=== PATIENT | female | born 1955 | race Caucasian/White ===

== ENCOUNTER 2019-08-06 12:29 | Observation (INO) | payer MEDICARE, BC ==
[~2019-08-06] VITALS: Ht 167.6 cm; Wt 68.3 kg
--- NOTE | 2019-08-06 13:39 | Diagnostic Imaging Report ---
Exam: Head CT without contrast History: Disoriented, memory loss Comparison studies: None Technique: Axial images were obtained from the skull base to the vertex. Coronal and sagittal images reconstructed from the axial data. Dose modulation, iterative reconstruction, and/or weight based adjustment of the mA/kV was utilized to reduce the radiation dose to as low as reasonably achievable. Radiation dose: Total DLP: 921 mGy*cm. Estimated effective dose: DLP x 0.015 Intravenous contrast: None Findings: Scalp: No abnormalities. Bones: No fractures, blastic or lytic lesions. Brain sulci: Appropriate for age. Ventricles: Normal in size and configuration. No hydrocephalus. Extra-axial spaces: No masses, no fluid collection. Parenchyma: No abnormal densities. No masses, hemorrhage, acute or chronic vascular insults. Brain volume within normal limits for patient's age. No significant disproportionate lobar, hippocampal, brainstem or cerebellar atrophy. Sellar/suprasellar region: No abnormalities. Craniocervical junction: Patent foramen magnum. No Chiari one malformation. Incidental findings: Included paranasal sinuses: Clear. Middle ear and mastoids: Clear. IMPRESSION: No acute abnormalities. Signed by: Dr. Wilmer New M.D. on 08/06/2019 1:35 PM
[2019-08-06 14:00] LABS: BASOPHILS % 0.4 % (0.0-1.0); EOSINOPHILS # (AUTO) 0.1 (0.0-0.4); EOSINOPHILS % 0.9 % (0.0-6.0); HEMATOCRIT 41.4 % (34.2-44.1); LYMPHOCYTES # (AUTO) 1.5 (1.0-3.2); LYMPHOCYTES % 14.9 % (18.0-39.1); MEAN CORPUSCULAR HEMOGLOBIN 29.7 pg (28-32); MEAN CORPUSCULAR HGB CONC 33.8 g/dL (31-35); MEAN CORPUSCULAR VOLUME 87.7 fL (81-99); MONOCYTES # (AUTO) 0.4 (0.2-0.8); MONOCYTES % 4.3 % (4.4-11.3); PLATELET COUNT 291 x10e3/uL (140-360); RED BLOOD COUNT 4.72 x10e6/uL (3.6-5.1); RED CELL DISTRIBUTION WIDTH 13.2 % (11.7-14.4)
[2019-08-06 14:03] LABS: BILIRUBIN,URINE NEGATIVE (NEGATIVE); CLARITY,URINE CLEAR (CLEAR); COLOR,URINE YELLOW (YELLOW); LEUKOCYTE ESTERASE ,URINE TRACE (NEGATIVE); NITRITE,URINE NEGATIVE (NEGATIVE); PROTEIN,URINE DIPSTICK NEGATIVE (NEGATIVE); URINE UROBILINOGEN 0.2 mg/dL (0.2 - 1)
[2019-08-06 14:07] LABS: AMPHETAMINES SCREEN,URINE NEGATIVE (NEGATIVE); BENZODIAZEPINES SCREEN,URINE NEGATIVE (NEGATIVE); KETONES,URINE 2+ (NEGATIVE); PHENCYCLIDINE SCREEN,URINE NEGATIVE (NEGATIVE)
[2019-08-06 14:21] LABS: BACTERIA,URINE RARE /HPF; EPITHELIAL CELLS,URINE FEW /LPF; RBC,URINE 0-5 /HPF (0-5)
[2019-08-06 14:25] LABS: ALANINE AMINOTRANSFERASE 18 IU/L (0-55); ALBUMIN 4.3 g/dL (3.5-5.0); ALBUMIN/GLOBULIN RATIO 1.4 (0.8-2.0); ALKALINE PHOSPHATASE 64 IU/L (40-150); ANION GAP 15.3 mmol/L (8-16); BLOOD UREA NITROGEN 10 mg/dL (7-26); BUN/CREATININE RATIO 13 (6-25); CALCIUM 9.9 mg/dL (8.4-10.2); CARBON DIOXIDE 24 mmol/L (22-29); CHLORIDE 101 mmol/L (98-107); CREATINE KINASE 53 IU/L (29-168); CREATININE, SERUM 0.78 mg/dL (0.57-1.11); EST GLOMERULAR FILTRATION RATE > 60 ML/MIN (60-); GLUCOSE 118 mg/dL (74-118); POTASSIUM 3.3 mmol/L (3.5-5.1); SODIUM 137 mmol/L (136-145)
[2019-08-06 14:39] LABS: INR 0.89; PROTHROMBIN TIME 12.5 seconds (11.9-14.5)
--- OUTSIDE RECORDS SUMMARY | 2019-08-06 15:19 | XMS REPORT ---
Author Author [facility] Address Unknown Phone Unavailable Care Team Providers Care Attendant [facility] Name Role Phone SADE MCCAULEY Unavailable Unavailable Problems This patient has no known problems. Allergies, Adverse Reactions, Alerts This patient has no known allergies or adverse reactions. Medications This patient has no known medications. Results Test Description Test Time Test Comments Text Results Atomic Results Result Comments CT BRAIN WO 2019-08-06 13:32:00 [place] [id number] Patient Name: HENRY RAMÍREZ MR #: [id number] : 1955 Age/Sex: 64/F Req #: [id number] Adm Physician: Ordered by: SADE MCCAULEY DO Report #: [id number] Location: ER Room/Bed: Procedure: [id number] CT/CT BRAIN WO Exam Date: 08/06/19 Exam Time: 1310 REPORT STATUS: Signed Exam: Head CT without contrast History: Disoriented, memory loss Comparison studies: None Technique: Axial images were obtained from the skull base to the vertex. Coronal and sagittal images reconstructed from the axial data. Dose modulation, iterative reconstruction, and/or weight based adjustment of the mA/kV was utilized to reduce the radiation dose to as low as reasonably achievable. Radiation dose: Total DLP: 921 mGy*cm. Estimated effective dose: DLP x 0.015 Intravenous contrast: None Findings: Scalp: No abnormalities. Bones: No fractures, blastic or lytic lesions. Brain sulci: Appropriate for age. Ventricles: Normal in size and configuration. No hydrocephalus. Extra-axial spaces: No masses, no fluid collection. Parenchyma: No abnormal densities. No masses, hemorrhage, acute or chronic vascular insults. Brain volume within normal limits for patient's age. No significant disproportionate lobar, hippocampal, brainstem or cerebellar atrophy. Sellar/suprasellar region: No abnormalities. Craniocervical junction: Patent foramen magnum. No Chiari one malformation. Incidental findings: Included paranasal sinuses: Clear. Middle ear and mastoids: Clear. IMPRESSION: No acute abnormalities. Signed by: Dr. Junior Harrington M.D. on 08/06/2019 1:35 PM Dictated By: JUNIOR HARRINGTON MD 13 35 Transcribed By: JENNA on 08/06/19 5735 COPY TO: SADE MCCAULEY DO
[2019-08-06] MEDS: SODIUM CHLORIDE FLUSH 10 ML SYR INJ PRN (16:05)
[2019-08-06 21:46] VITALS: BP 144/87
[2019-08-07] VITALS (7 sets, daily range): BP systolic 103–120; BP diastolic 59–69
--- NOTE | 2019-08-07 08:43 | NUR ---
H&P cc: confusion HPI: 64yoF, PCP , developed confusion. No slurred speech/focal weakness/fall/seizure activity. Now back to baseline; CT brain negative PMH:menopause related symptoms, UTis, claustrophobia PHSx; tonsillecotmy allergies; see emr Fh/Sh; no cigs meds; see MAR ROS; no f/c/s/n/V/D/SUAREZ/vision changes/cp/sob/skin rash VS revd PE tired appearing anicteric ns1s2 mod bs soft nt nd no e/t a&oxe; no visual field deficits; no focal weaknss; 5/5 motor all ext skin dry flat affect labs/meds; revd A/P: Acute metabolic encephalopathy Hypokalemia PLAN CT brain negative; CHeck K Lovenox; pepcid PT consult
[2019-08-07] MEDS ORDERED: LORAZEPAM INJ 2 MG/ML VIAL IV PRN (11:30)
[2019-08-07] MEDS ORDERED: ACETAMINOPHEN 325 MG TAB PO PRN (11:30)
[2019-08-07 14:46] LABS: CHOL/HDL RATIO 2.7 (3.0-3.6)
--- NOTE | 2019-08-07 15:22 | NUR ---
PATIENT REFUSED MRI, PATIENT REFUSED TO BE MEDICATED FOR ANXIETY PRIOR TO MRI FOR SECOND ATTEMPT, PATIENT REFUSED MRI 2ND TIME.
[2019-08-07] MEDS ORDERED: ENOXAPARIN SOD INJ 40 MG/0.4 ML SYR SC SCH (17:00)
[2019-08-07] MEDS: FAMOTIDINE 20 MG TAB PO SCH (17:35)
--- NOTE | 2019-08-07 18:28 | Diagnostic Imaging Report ---
Exam: CTA brain History: 64-year-old female with memory loss and altered mental status, Comparison studies:CT brain without contrast 08/06/2019 Technique: Multidetector helical axial images were acquired through the head during infusion of iodinated contrast material. Images were reviewed in multiplanar and 3-dimensional format. Dose modulation, iterative reconstruction, and/or weight based adjustment of the mA/kV was utilized to reduce the radiation dose to as low as reasonably achievable. Intravenous contrast: 100 cc of Isovue 370. Findings: Right internal carotid artery: Patent. No abnormalities. Left internal carotid artery: Patent. No significant stenosis or acute abnormalities. Right vertebral artery: Patent. No significant stenosis or acute abnormalities. Left vertebral artery: Patent. No significant stenosis or acute abnormalities. Basilar artery: Patent. No significant stenosis or acute abnormalities. Posterior cerebral arteries: Patent. No significant stenosis or acute abnormalities. Anatomical variants: Acom: Patent . Pcoms: Patent. Vertebral arteries: Codominant . IMPRESSION: No acute vascular abnormalities specifically no evidence of large vessel occlusion, hemodynamically significant stenosis or aneurysm. This preliminary report was issued by Dr. Michelet Campbell M.D. at 1827 hours on 08/07/2019. I have reviewed the images and agree with findings in the preliminary report. Signed by: Dr. Nicole Nur M.D. on 08/07/2019 8:42 PM
--- NOTE | 2019-08-07 19:00 | NUR ---
Received report from previous nurse. Call light within reach. at bedside. Patient in bed.
[2019-08-07] MEDS: SODIUM CHLORIDE FLUSH 10 ML SYR INJ PRN (19:38)
[2019-08-07] MEDS ORDERED: IOPAMIDOL 370 MG/ML 200 ML INFUS..BTL INJ ONE (22:07)
[2019-08-07] MEDS ORDERED: SODIUM CHLORIDE 0.9% 100 ML ONE (22:07)
--- NOTE | 2019-08-07 23:04 | Consultation ---
DATE OF CONSULTATION: 08/07/2019 Neurology Consult Note HISTORY OF PRESENT ILLNESS: Ms. Ennis is a 64-year-old right-hand dominant woman without significant past medical history, admitted to [facility] under observation status on August 06, 2019, with confusion. On the morning of admission, the patient was cleaning a Bible study, when at 11:05, she experienced the abrupt onset of confusion. This is further described as a loss of focus and inability to resume to the lesson. Furthermore, Ms. Ennis repeated the same question over and over. There was no loss of consciousness. There were no stereotypic movements associated with the above activity. Ms. Ennis did tell someone she felt dizzy, but cannot further describe the dizziness. There was no poor balance or impairment of gait associated with the above symptoms. The patient does not report a visual field cut or other disturbance, dysarthria, aphasia, facial droop, hemiparesis, or hemihypesthesia, associated with the above symptoms. At present, Ms. Ennis endorses a mild headache, which is further described as pressure behind her eyes and cheeks. The patient does not recall whether or not she had a headache while she experienced the confusion and dizziness yesterday, 08/06/2019. Of note, Ms. Ennis has no memory of the events, which led to her hospitalization. Shortly after the onset of the above described symptoms, the patient's was notified. He brought the patient to the emergency center at [facility] for further evaluation of her symptoms. Upon arrival in the emergency center, the patient was afebrile with a blood pressure of 180/83 mmHg and a pulse of 74 beats per minute. The patient's neurological examination was significant for severely altered mental status, which is further described as being forgetful and disorientation to time. Otherwise, no focal deficits were demonstrated. A CT of the brain without contrast was performed while the patient was in the emergency center. There is no evidence of recent large territorial ischemia or hemorrhage on this study. Ms. Ennis was subsequently admitted to [facility] under observation status for further evaluation and treatment of her symptoms. According to family members at the bedside, Ms. Ennis returned to her neurological baseline approximately 1800 on 08/06/2019, approximately 7 hours after symptom onset. One other symptom endorsed by the patient is urinary frequency and urgency. Ms. Ennis does report feeling "like I have a UTI." The patient's reports multiple recent psychosocial stressors involving the care of the patient's elderly mother and disagreements with siblings about back care. Ms. Ennis does not report a prior history of migraines. She does not report a personal history of febrile seizures or other seizures. There is no known family history of seizure disorders. The patient does not report prior meningitis or encephalitis. Ms. Ennis does report falling approximately two years ago. This fall did result in a black eye. However, the patient states she did not feel dazed nor did she lose consciousness as a result of this fall. REVIEW OF SYSTEMS: Sinus pressure, urinary frequency or urgency, confusion, dizziness. Otherwise, a 12-point review of systems is negative. PAST MEDICAL HISTORY: None. PAST SURGICAL HISTORY: Tonsillectomy, procedure for endometriosis, and wisdom tooth extraction. PAST HOSPITALIZATIONS: Surgeries/procedures as listed. FAMILY MEDICAL HISTORY: Ms. Ennis's father is from complications of dementia. Her mother is alive, but has dementia as well. One brother in his 20s from cystic fibrosis. The patient has three other brothers, all of whom are alive and healthy. SOCIAL HISTORY: Ms. Ennis is . She is retired. The patient does not report current or prior tobacco, alcohol, or recreational drug use. HOME MEDICATIONS: None. HOSPITAL MEDICATIONS: Tylenol, Lovenox, Pepcid, and Ativan. ALLERGIES: NO KNOWN DRUG ALLERGIES. NO KNOWN FOOD ALLERGIES. NO KNOWN ALLERGIES TO LATEX. NO KNOWN ALLERGIES TO IODINE OR OTHER CONTRAST MATERIALS. PHYSICAL EXAMINATION: VITAL SIGNS: Height 66 inches, weight 148 pounds, BMI 23.9 kg/m2, blood pressure 103/63 mmHg, pulse 70 beats per minute, respiratory rate 18 breaths per minute, and oxygen saturation 100% on room air. GENERAL: The patient is awake and alert, does not appear distressed. Normal body habitus. HEENT: Normocephalic, and atraumatic. Pupils are equal, round, and reactive to light. Moist mucous membranes. NECK: Supple. No appreciable thyromegaly. No appreciable carotid bruits. CARDIOVASCULAR: S1, S2, regular rate and rhythm. No murmurs, rubs, or gallops. RESPIRATORY: Clear to auscultation bilaterally. No wheezes, rhonchi, or rales. EXTREMITIES: The skin is warm and dry. No clubbing, cyanosis, or edema. The posterior tibial and dorsalis pedis pulses are 2+ and symmetric. SKIN: No rashes or lesions. NEUROLOGIC: Memory/Attention: The patient is awake and alert, oriented to person, place, time, and situation. Cranial Nerves: Cranial nerve I - not tested. Cranial nerve II, III, IV, and - pupils are equal and round, reactive briskly to light (from 4 mm to 2 mm). Extraocular movements intact. No nystagmus. Cranial nerve V - sensation to light touch and pinprick is intact in the bilateral V1 through V3 distributions. Strength in the temporalis and masseter muscles is within normal limits. Cranial nerve VII - the face is symmetric as are all facial movements. Strength is within normal limits. Cranial nerve VIII - hearing is intact to finger rub bilaterally. Cranial nerve IX, X - the soft palate elevates equally and symmetrically. Cranial nerve XI - normal strength of the bilateral sternocleidomastoid and trapezius muscles. Cranial nerve XII - the tongue protrudes midline and moves symmetrically from [id number]. Strength: Bulk is normal. Strength is 5/5 in the bilateral deltoids, biceps, triceps, wrist flexors and extensors, finger flexors and extensors, intrinsic hand muscles, hip flexors, knee flexors and extensors, ankle dorsiflexion and plantar flexion, and intrinsic foot muscles. Tone is normal. DTRs: Deep tendon reflexes are 2+ and symmetric at the triceps, biceps, brachioradialis, patellas, and Achilles. Plantar responses are flexor bilaterally. Sensation: Sensation is intact to light touch and pinprick in both arms and both legs. Cerebellar: [id number]-[id number]-mgnmtv and heel-tanner movements are intact without dysmetria or other impairment. Gait: Deferred. Speech: Spontaneous speech is normal without appreciable dysarthria or aphasia. Repetition is intact. Involuntary movements: None. Pronator Drift: None. LABORATORY DATA: A comprehensive metabolic panel is significant only for mild hypokalemia with a potassium of 3.3. A repeat potassium is 3.8. Cardiac enzymes are negative x1. The CBC with differential and platelets is unremarkable. A coagulation profile is within normal limits. A urinalysis collected on August 06, 2019, reveals 2+ ketones, trace leukocyte esterase, no white blood cells, rare urine bacteria with few urine epithelial cells. A urine drug screen is negative. DIAGNOSTIC STUDIES: Electrocardiogram on 08/06/2019: Normal sinus rhythm at 75 beats per minute. Possible left atrial enlargement. Low-voltage QRS. Prolonged QT interval. CT of the brain without contrast 08/06/2019: On my review, there is no evidence of recent or remote large territorial ischemia, hemorrhage, mass, or mass effect. Cerebral volumes are appropriate for age. There are no findings suggestive of chronic small vessel ischemic disease. ASSESSMENT AND PLAN: Ms. Ennis is a 64-year-old woman without significant past medical history, admitted to [facility] under observation status on August 06, 2019, with confusion and dizziness of several hours duration. At present, the patient's neurological examination is nonfocal. Her laboratory data and other diagnostic studies have been reviewed and are documented above. The differential diagnosis for Ms. Ennis includes: Posterior circulation stroke versus partial seizure with prolonged postictal phase versus complex migraine. RECOMMENDATIONS: As follows: 1. A lipid panel and hemoglobin A1c will be ordered. 2. A MRI of the brain without contrast will be ordered to evaluate for recent large territorial ischemia, especially in the posterior circulation, as well as structural anomalies, which could predispose the patient toward seizures. 3. An echocardiogram will be ordered. 4. Bilateral carotid artery ultrasound with Doppler will be ordered. 5. A routine EEG will be ordered to evaluate for abnormal electrocortical activity. 6. Defer treatment of the remaining medical comorbidities to the primary and other services following the patient. 7. Further recommendations regarding treatment will be made once the above studies are available for review. 8. Anticipated disposition: Home with no needs in one to two days. Thank you for this consultation. I will continue to follow the patient while she remains in the hospital. TIME SPENT: 70 minutes. Kimmy Garcia MD CP/MANGO /[id number] ALDAIR
[2019-08-08] VITALS: BP 111/65
[2019-08-08 04:00] VITALS: BP 110/66
--- NOTE | 2019-08-08 07:27 | NUR ---
GAVE REPORT TO ONCOMING NURSE. PATIENT IN BED. CALL LIGHT WITHIN REACH. SON AT BEDSIDE
[2019-08-08 07:52] VITALS: BP 119/69
[2019-08-08] MEDS: FAMOTIDINE 20 MG TAB PO SCH (09:01)
[2019-08-08 09:02] VITALS: BP 119/69
[2019-08-08] MEDS ORDERED: PRAVASTATIN SOD10 MG PO (09:49)
[2019-08-08] MEDS ORDERED: ECOTRIN81 MG PO (09:49)
--- NOTE | 2019-08-08 09:53 | NUR ---
D/C summary Principal dx: Acute metabolic encephalopathy Hypokalemia PLAN CT brain negative; CHeck K Lovenox; pepcid PT consult Refused MRI; CTA brain negative; back to baseline; hba1c/LDL 5.1/112 D/C home on statin/asa f/u pcp 1 week and neurology clinic 2 weeks stable d/c>35mins Augustine Sue MD, PhD.
[2019-08-08 11:52] VITALS: BP 107/61
== END 2019-08-08 11:34 | disposition home or self-care (01) ==
LOC: ER 12:29 → ERHOLD 15:16 → IMCU 21:23
PROVIDERS: ADMIT Internal Medicine; ATTEND Internal Medicine
DX: G93.41 Metabolic encephalopathy (principal); E87.6 Hypokalemia
CPT/HCPCS: 36415 ×2; 70450; 70496; 80053; 80061; 80307; 81001; 82550; 82553; 83036; 84132; 84484; 85025; 85610; 85730; 93005; 93306; 93880; 95816; 97116; 97161; 99284; G0378 ×3; J1650; J2060; J7050; Q9967

== ENCOUNTER → 2022-04-17 | Outpatient (CLI) | payer MEDICARE ==
[~2022-04-17] MED LIST: ECOTRIN81 MG PO; PRAVASTATIN SOD10 MG PO
== END ==
LOC: MAMMO 13:07
PROVIDERS: ATTEND Internal Medicine
DX: Z12.31 Encounter for screening mammogram for malignant neoplasm of breast (principal)
CPT/HCPCS: 77067